=== PATIENT | female | born 1970 | race Caucasian/White ===

== ENCOUNTER 2023-06-13 11:09 | Emergency (ER) | payer OTHER, SELFPAY ==
[2023-06-13 11:28] VITALS: BP 154/97; PULSE 83; RESP 16; TEMP 36.3; O2SAT 97; BMI 32.3
--- NOTE | 2023-06-13 11:45 | ED.WOUNDLAC ---
HPI - Wound/Laceration General Time Seen by Provider: 11:45 Date Seen: 06/13/23 Chief Complaint: Laceration/Wound Stated Complaint: Cut on L finger Time Seen by Provider: 06/13/23 11:33 Source: patient and RN notes reviewed Mode of arrival: ambulatory Limitations: no limitations History of Present Illness HPI narrative: Patient is a 52-year-old female coming in with a cut on her right 5th pinky. She was cleaning her grill, doing fall cleanup when she cut her finger on 1 of the grill great. Her tetanus is up-to-date with it last being done on 12/18/2021. The finger past the cut feels kind of numb and tingly. She feels the cut is deep. Bleeding is controlled. This happened just prior to arrival. She is holding pressure on the finger with a cloth. 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 Patient tetanus UTD: Yes Context: accidental Associated symptoms: loss of feeling/numbness Related Data Allergies Allergy/AdvReac Type Severity Reaction Status Date / Time iodine Allergy Severe Rash Verified 06/13/23 11:33 adhesives Allergy Severe Rash Uncoded 06/13/23 11:33 Review of Systems Narrative: As per HPI. Exam Const: Vital Signs, click to edit/add: Vital Signs - 24 hr 06/13/23 11:28 Temperature 97.3 F L Pulse Rate [Right Pulse Oximeter] 83 Respiratory Rate 16 Blood Pressure [Ri ght Upper Arm] 154/97 H Pulse Oximetry 97 Oxygen Delivery Me thod Room Air Patient is alert, interactive, no apparent distress. Her cloth was removed from the finger. She has a somewhat oblique semi circular laceration along the palmar medial aspect of the finger, goes along the mid phalanx area. There is no active bleeding at this time. Wound does seem DP into the subcutaneous tissue, she is able to fully flex and extend. She has normal sensation medially along the finger but does state it feels numb and tingly along the lateral aspect distal to the cut. She has good cap refill, normal appearance in warmth of the distal finger. Again, no active bleeding at this time. Documenting provider has reviewed patient's vital signs: yes Course Course ED Course: Reviewed with patient that she likely did get some of the nerve on the lateral aspect of the finger distal to the cut. I anesthetized with 0.25% bupivacaine, 4 mL drawn up, 2 mL given locally. Will have nursing staff irrigate the wound and then further explore and close this wound. She understands if I do see any evidence of any tendon involvement or other concerns, may need to be referred to a hand surgeon next week. Otherwise. If the only complication is the numbness tingling, this could be a chronic issue for her from this cut. Vital Signs Vital signs: Initial Vital Signs Temperature 97.3 F L 06/13/23 11:28 Temperature Source Temporal Artery Scan 06/13/23 11:28 Pulse Rate 83 06/13/23 11:28 Pulse Rhythm Regular 06/13/23 11:28 Pulse Strength 3+ Normal 06/13/23 11:28 Respiratory Rate 16 06/13/23 11:28 Blood Pressure 154/97 H 06/13/23 11:28 Blood Pressure Mean 116 H 06/13/23 11:28 Blood Pressure Position Supine 06/13/23 11:28 Pulse Oximetry 97 06/13/23 11:28 Oxygen Delivery Method Room Air 06/13/23 11:28 Vital Signs Temperature 97.3 F L 06/13/23 11:28 Pulse Rate 83 06/13/23 11:28 Respiratory Rate 16 06/13/23 11:28 Blood Pressure 154/97 H 06/13/23 11:28 Pulse Oximetry 97 06/13/23 11:28 Oxygen Delivery Method Room Air 06/13/23 11:28 Temperature 97.3 F L 06/13/23 11:28 Pulse Rate 83 06/13/23 11:28 Respiratory Rate 16 06/13/23 11:28 Blood Pressure 154/97 H 06/13/23 11:28 Pulse Oximetry 97 06/13/23 11:28 Oxygen Delivery Method Room Air 06/13/23 11:28 Discharge Plan Discharge Clinical Impression: Finger laceration Patient Disposition: Home, Self-Care Condition: Stable Instructions: Care For Your Stitches (ED), Finger Laceration (ED) Additional Instructions: May shower and wash hands but should otherwise keep the wound clean and dry. Use bandages and bacitracin. Need to schedule clinic follow-up in about 10 days to assess the wound for suture removal. If there are any concerns for infection, please seek re-evaluation. If you have absolutely any concern about functionality or movement in this finger, please contact Orthopedics and get a re-evaluation done. Phone number in [facility] is [phone]. Activity Level: Activity as Tolerated Stand Alone Forms: [id number] Info Instructions Procedures Laceration Laceration 1: Pre procedure diagnosis: Right 5th finger laceration Post procedure diagnosis: Same Site marking: not applicable Name of person performing procedure: Laura Peraza Site: hand Side (If applicable): right Size (cm): 1 Description: linear Depth: simple, single layer (Did explore wound, does go down to the aponeurosis but there is absolutely no involvement) Local Anesthetic: bupivacaine 0.25% Amount of anesthesia used (mL): 4 (For mils drawn up, 2 mL given initially and subsequent 1 mL use during the procedure for completion of anesthesia.) Pre-repair: wound explored, irrigated extensively and deep structures intact Skin layer closed with: other (Ethilon) Size (cm): 3-0 Number of sutures: 5 Technique: simple, interrupted Estimated blood loss (if any): less than 5mls Conclusion: patient tolerated procedure
== END 2023-06-13 12:38 | disposition home or self-care (01) ==
LOC: ED 12:09
PROVIDERS: Emergency Provider Family Medicine; PCP Family Medicine
DX: S61.216A Laceration without foreign body of right little finger without damage to nail, initial encounter (principal)
CPT/HCPCS: 12001; 99283

== ENCOUNTER 2024-07-09 13:47 | Emergency (ER) | payer OTHER, SELFPAY ==
[2024-07-09 13:53] VITALS: BP 156/98; PULSE 70; RESP 18; TEMP 36.1; O2SAT 96; BMI 33.5
--- NOTE | 2024-07-09 14:31 | ED_ITS ---
HPI - General Adult General Chief complaint: Insect Bite Stated complaint: STUNG BY WASP,ALLERGIC Time Seen by Provider: 07/09/24 14:07 Source: patient Mode of arrival: ambulatory Limitations: no limitations History of Present Illness HPI narrative: 53-year-old female coming in today after being stung by a wasp on the right hand approximately 1 hour ago. The hand has since become swollen and patient feels tingling going up into her arm. Patient states that in the past she was stung by a wasp so during 1 incident and had an anaphylactic reaction. She has since cared around EpiPen. She has not used her EpiPen today but did take 4 Benadryl prior to coming to the ER. She denies difficulty breathing or speaking. She denies swelling of her lips, tongue or the back of her throat. No globus sensation. No wheezing or coughing. No rashes. Related Data Home Medications ?Medication ?Instructions ?Recorded ?Confirmed celecoxib 200 mg capsule 200 mg PO BID PRN pain 07/09/24 07/09/24 trazodone 50 mg tablet 75 mg PO QPM PRN insomnia 07/09/24 07/09/24 Allergies Allergy/AdvReac Type Severity Reaction Status Date / Time iodine Allergy Severe Rash Verified 06/13/23 11:33 adhesives Allergy Severe Rash Uncoded 06/13/23 11:33 Review of Systems Status of ROS: Reports: 10 or more systems reviewed and unremarkable except as noted in History and below [facility] Social History Smoking Status: Never smoker Do you use any of these nicotine containing products: None Second hand tobacco smoke exposure: No How often do you have a drink containing alcohol: never AUDIT-C Alcohol total score: 0 Non-prescribed substance use: denies use service: No Exam Narrative: Exam Narrative: Well-nourished well-developed patient in no acute distress. Alert and oriented. Answers questions appropriately. Mood and affect are appropriate. Thoughts are goal oriented and rational. No tangential or magical thinking noted. Patient speaks in full sentences without needing to catch her breath. HEENT: Normocephalic atraumatic. Pupils are equally round reactive to light. Extraocular muscles are intact. Conjunctivae are moist without any icterus noted. Moist mucous membranes. Posterior pharynx is normal. Neck is soft without any lymphadenopathy or thyromegaly. No masses are appreciated. There is no lip or tongue swelling noted. Soft palate is normal. Cardiovascular: Heart is regular rate and rhythm. Lungs: Clear to auscultation bilaterally no wheezes rhonchi or rales are appreciated. Patient takes deep breaths without any discomfort. Extremities: Bilateral lower extremities are without edema. The right upper extremity has swelling of the lateral dorsal surface of the hand. The swelling does not extend past the wrist. Skin: Well perfused without any obvious rashes. No hives or wheals appreciated on the extremities, face or trunk. Const: Vital Signs, click to edit/add: Vital Signs - 24 hr 07/09/24 13:53 07/09/24 14:41 07/09/24 14:54 Temperature 97.0 F L Pulse Rate 66 Pulse Rate [Right Pulse Oximeter] 70 Respiratory Rate 18 Blood Pressure [Ri ght Upper Arm] 156/98 H Pulse Oximetry 96 95 95 Oxygen Delivery Me thod Room Air 07/09/24 15:00 07/09/24 15:30 Temperature Pulse Rate 60 57 L Pulse Rate [Right Pulse Oximeter] Respiratory Rate Blood Pressure [Ri ght Upper Arm] Pulse Oximetry 96 96 Oxygen Delivery Me thod Course Course ED Course: This time does not appear that the patient is having as lactic reaction. Did discuss monitoring her for a couple of hours with given her concern. Did give her a dose of IV Solu-Medrol in the meantime. Patient felt better after treatment. The redness of the hand subsided although it did remain swollen. It did not spread and she developed no systemic symptoms. Vital Signs Vital signs: Initial Vital Signs Temperature 97.0 F L 07/09/24 13:53 Temperature Source Temporal Artery Scan 07/09/24 13:53 Pulse Rate 70 07/09/24 13:53 Pulse Rhythm Regular 07/09/24 13:53 Pulse Strength 3+ Normal 07/09/24 13:53 Respiratory Rate 18 07/09/24 13:53 Blood Pressure 156/98 H 07/09/24 13:53 Blood Pressure Mean 117 H 07/09/24 13:53 Blood Pressure Position Sitting 07/09/24 13:53 Pulse Oximetry 96 07/09/24 13:53 Oxygen Delivery Method Room Air 07/09/24 13:53 Vital Signs Temperature 97.0 F L 07/09/24 13:53 Pulse Rate 70 07/09/24 13:53 Respiratory Rate 18 07/09/24 13:53 Blood Pressure 156/98 H 07/09/24 13:53 Pulse Oximetry 96 07/09/24 13:53 Oxygen Delivery Method Room Air 07/09/24 13:53 Temperature 97.0 F L 07/09/24 13:53 Pulse Rate 57 L 07/09/24 15:30 Respiratory Rate 18 07/09/24 13:53 Blood Pressure 156/98 H 07/09/24 13:53 Pulse Oximetry 96 07/09/24 15:30 Oxygen Delivery Method Room Air 07/09/24 13:53 Medications Administered Medications: Discontinued Medications Generic Name Dose Route Start Last Admin Trade Name Freq PRN Reason Stop Dose Admin Methylprednisolone Sodium Succinate 125 mg 07/09/24 14:12 07/09/24 14:33 Methylprednisolone Sod Succ 62.5 Mg/Ml (125) IVP 07/09/24 14:13 125 mg ONCE ONE Administration Medical Decision Making MDM Narrative Medical decision making narrative: With localized reaction to wasp sting. Discussed symptomatic treatment. Discharge Plan Discharge Clinical Impression: Sting, wasp Patient Disposition: Home, Self-Care Condition: Stable Additional Instructions: Okay to use Benadryl as needed for the next couple of days. Okay to use ibuprofen as needed for discomfort and swelling of the hand. Small if redness returns in the next few days and starts to spread up the arm, I would recommend you return for re-evaluation. If you develop difficulty breathing, swelling of the face, lips or tongue- recommend giving yourself a dose of epinephrine and returning to the ER. Prescriptions: No Action celecoxib 200 mg capsule 200 mg PO BID PRN (Reason: pain) trazodone 50 mg tablet 75 mg PO QPM PRN (Reason: insomnia) Follow Up/Referrals: Olga Branch MD [Primary Care Provider] - Stand Alone Forms: [employer] Info Instructions
[2024-07-09] MEDS: METHYLPREDNISOLONE SOD SUCC 62.5 MG/ML (125) 125 MG IVP (14:33)
[2024-07-09 14:41] VITALS: PULSE 66; O2SAT 95
[2024-07-09 14:54] VITALS: O2SAT 95
[2024-07-09 15:00] VITALS: PULSE 60; O2SAT 96
[2024-07-09 15:30] VITALS: PULSE 57; O2SAT 96
== END 2024-07-09 15:59 | disposition home or self-care (01) ==
PROVIDERS: Emergency Provider Family Medicine; PCP Family Medicine
DX: T63.461A Toxic effect of venom of wasps, accidental (unintentional), initial encounter (principal)
CPT/HCPCS: 94761; 96374; 99283; 99284; J2919